=== PATIENT | female | born 1960 | race Caucasian/White ===

== ENCOUNTER 2016-10-26 14:28 | Emergency (ER) | payer OTHER ==
[2016-10-26 15:18] VITALS: BP 127/75
--- NOTE | 2016-10-26 17:48 | UC ---
Soham Marie Erika, scribed for Marcella Pa DO on 10/26/16 at 1511 . Cardiac HPI - HPI Summary HPI Summary: Patient is a 56-year-old female presenting to [facility] with a CC of sudden-onset chest pain starting at 12:00 today, and resolving around 13:45 today. Pain was located upper sternal, and pt describes it as similar to GERD she had during . Pain radiates between the shoulder blades midline, as well as up the posterior neck midline. Associated symptoms included lightheadedness and feeling weak in the bilateral arms. Patient also reports she became slightly SOB after walking up the stairs. Pt reports that after onset of symptoms, she became anxious, and she took 648 mg ASA. She also took her BP which was first 159/90s, which is high for her. Symptoms were not alleviated by slow deep breathing. Pain did subside around 13:45, but she has still noted some intermittent waves of lightheadedness, mild chest pain, and bilateral arm weakness l>r. She denies jaw pain, sore throat, ear ache, nausea, abdominal pain , urinary symptoms, and rashes. She does report that she had similar symptoms three days ago which only lasted ~10min. She notes she has been constipated recently. Patient denies Hx panic attacks. Patient does not take any medication. FHx HTN, CAD, hyperlipidemia. Patient lives with her , is a former smoker, and does not use illicit drugs. - History of Current Complaint Stated Complaint: CHEST PAIN Time Seen by Provider: 10/26/16 14:48 Hx Obtained From: Patient, Family/E[employer] - Onset/Duration: Sudden Onset, Lasting Hours, Resolved Timing: Constant Initial Severity: Moderate Current Severity: Mild Chest Pain Location: Mid Sternal, Upper Sternal Character: Dull/Aching, Burning, Heaviness, Pressure/Squeezing Aggravating: Exertion Alleviating: Rest, OTC Meds - ASA, Spontaneous Resolution Associated Signs & Symptoms: Positive: Chest Pain, Weakness - arms bilateral, Dizziness - lightheadedness, SOB, Back Pain. Negative: Headaches, Diaphoresis, Nausea/Vomiting, Abdominal Pain - Risk Factors Cardiac Risk Factors: Family History - Allergy/Home Medications Allergies/Adverse Reactions: Allergies Allergy/AdvReac Type Severity Reaction Status Date / Time eggplant Allergy Swelling Uncoded 10/26/16 15:06 Of Face,Lips,& Throat Home Medications: Home Medications Aspirin [Lola Aspirin 325 MG] 325 mg PO ONCE 10/26/16 [History Confirmed ] PMH/Surg Hx/FS Hx/Imm Hx Previously Healthy: Yes Endocrine History Of: Denies: Diabetes - Family History Known Family History: Positive: Cardiac Disease, Hypertension - Social History Lives: With Family Substance Use Type: None Smoking Status (MU): Former Smoker Review of Systems Constitutional: Negative Skin: Negative Eyes: Negative ENT: Negative Respiratory: Shortness Of Breath Cardiovascular: Chest Pain Gastrointestinal: Negative Genitourinary: Negative Motor: Negative Neurovascular: Negative Musculoskeletal: Other: - pain between shoulder blades, up posterior neck Neurological: Weakness - bilateral arms, Other - lightheadedness Psychological: Negative All Other Systems Reviewed And Are Negative: Yes Physical Exam Triage Information Reviewed: Yes Appearance: Well-Appearing, No Pain Distress, Obese Vital Signs: Initial Vital Signs Temp 98.3 F 10/26/16 15:09 Pulse 75 10/26/16 15:09 Resp 18 10/26/16 15:09 BP 127/75 10/26/16 15:09 Pulse Ox 97 10/26/16 15:09 Vital Signs Reviewed: Yes Eyes: Positive: Conjunctiva Clear. Negative: Discharge ENT: Positive: Hearing grossly normal. Negative: Muffled/hoarse voice Neck: Positive: Supple, Nontender Respiratory: Positive: Lungs clear, Normal breath sounds, No respiratory distress, No accessory muscle use Cardiovascular: Positive: RRR, No Murmur Abdomen Description: Positive: Nontender, Soft. Negative: Distended, Guarding Bowel Sounds: Positive: Present Musculoskeletal Exam: Normal Neurological: Positive: Alert, Muscle Tone Normal Psychological Exam: Normal Psychological: Positive: Age Appropriate Behavior Skin Exam: Other - Warm, dry, normal color Diagnostics - EKG Cardiac Rate: NL - at 67 bpm Cardiac Rhythm: Sinus: Normal - Differential Diagnoses - Chest Pain Differential Diagnosis/HQI/PQRI: ACS, Angina, Chest Wall, GI Disease - Clinical Impression Provider Diagnoses: 1. Chest pain r/o ACS - Physician Notifications Discussed Patient Care With: Rosaura JERONIMO ([facility] [place]) at 15:15 - accepts patient for transfer Discharge - Discharge Plan Condition: Stable Disposition: TRANS HIGHER L OF CARE FAC Referrals: [facility], [MD - TESTING] - The documentation as recorded by the otonielibSoham altamirano Erika accurately reflects the service I personally performed and the decisions made by me, Marcella Pa DO.
== END 2016-10-26 16:00 | disposition short-term general hospital (02) ==
LOC: UCEAST 14:28
DX: R07.9 Chest pain, unspecified (principal); Z79.82 Long term (current) use of aspirin; Z87.891 Personal history of nicotine dependence
CPT/HCPCS: 93005; 99213; G0463

== ENCOUNTER 2016-10-26 16:23 | Inpatient (IN) | payer OTHER ==
--- NOTE | 2016-10-26 17:26 | RAD ---
Indication: Atypical chest pain. Recurrent from 3 days ago. Comparison: None. Technique: Upright AP 1714 hours Report: Large body habitus limits image quality. No pulmonary infiltrate, focal pulmonary lesion, pleural effusion, pneumothorax. The heart, pulmonary vasculature, and mediastinal contours are unremarkable. IMPRESSION: No evidence for acute intrathoracic disease.
[2016-10-26 17:55] LABS: Hematocrit 42 % (35-47); Hemoglobin 13.9 g/dl (12.0-16.0); Mean Corpuscular HGB Conc 33 g/dl (31-36); Mean Corpuscular Hemoglobin 30 pg (27-31); Mean Corpuscular Volume 92 fL (80-97); Mean Platelet Volume 9 um3 (7.4-10.4); Red Blood Count 4.62 10^6/ul (4.0-5.4); Red Cell Distribution Width 13 % (10.5-15); White Blood Count 7.6 10^3/ul (3.5-10.8)
[2016-10-26 18:12] LABS: Albumin 4.2 g/dL (3.2-5.2); BUN/Creatinine Ratio 15.9 (8-20); Calcium 9.7 mg/dL (8.6-10.3); EGFR African American 126.2 (>60); EGFR Non-African American 98.1 (>60); Globulin 3.3 g/dL (2-4); Magnesium 2.1 mg/dL (1.9-2.7); Potassium 4.5 mmol/L (3.5-5.0); Total Bilirubin 0.3 mg/dL (0.2-1.0); Total Protein 7.5 g/dL (6.4-8.9)
[2016-10-26 18:17] LABS: Troponin I 0.19 ng/mL (<0.04)
[2016-10-26 18:21] LABS: T4 7.77 g/dL (6.09-12.23); TSH (Thyroid Stimulating Horm) 2.39 mcIU/mL (0.34-5.60)
[2016-10-26] MEDS ORDERED: Acetaminophen TAB* 325 MG PO PRN (18:22)
[2016-10-26] MEDS ORDERED: Morphine INJ* 2 MG/ML 1 ML SYRINGE IV PRN (18:22)
[2016-10-26] MEDS ORDERED: Ondansetron INJ* 2 MG/ML VIAL IV PRN (18:22)
[2016-10-26] MEDS ORDERED: Nitroglycerin TAB 0.4 MG* 0.4 MG TAB SL ONE (18:24)
[2016-10-26] MEDS ORDERED: NS 0.9% 1000 ML* 1,000 ML IV SCH (18:30)
--- NOTE | 2016-10-26 18:39 | ED ---
Hiral Marie Alok, scribed for Fareed Meza MD on 10/26/16 at 1709 . HPI Chest Pain - HPI Summary HPI Summary: 56 y/o female presents to the ED for upper CP radiating to the neck, SOB, lightheadedness and upper extremity weakness bilaterally while painting a few hours ago. Pt said the entire episode lasted approximately 1.5 hours after which symptoms have resolved. CP is described as a burning registering at a 6 out of 10 in severity for which she took one aspirin that largely improved her symptoms. Currently she feels no CP or SOB. Pt denies PMHx/PSHx. Pt denies drug use, EtOH occasionally, and is a former tobacco smoker. - History of Current Complaint Chief Complaint: EDChestPainROMI Time Seen by Provider: 10/26/16 16:52 Hx Obtained From: Patient Onset/Duration: Started Hours Ago, Atraumatic, Resolved Timing: Intermittent, Lasting Hours Initial Severity: Moderate Current Severity: None Pain Intensity: 0 Pain Scale Used: 0-10 Numeric Chest Pain Location: Discrete at:, Upper Sternal Chest Pain Radiates: Yes Chest Pain Radiates To:: Neck Character: Burning Alleviating Factor(s): OTC Meds - Aspirin Associated Signs and Symptoms: Positive: Chest Pain, Weakness, Shortness of Breath, Lightheadedness - Allergy/Home Medications Allergies/Adverse Reactions: Allergies Allergy/AdvReac Type Severity Reaction Status Date / Time eggplant Allergy Swelling Uncoded 10/26/16 15:06 Of Face,Lips,& Throat PMH/Surg Hx/FS Hx/Imm Hx Endocrine/Hematology History: Denies: Hx Diabetes - Surgical History Surgery Procedure, Year, and Place: D&C 2010 - fibroid removal in uterus Infectious Disease History: Denies: Traveled Outside the [place] in Last 30 Days - Family History Known Family History: Positive: Hypertension - Social History Lives: With Family - Alcohol Use: None Substance Use Type: Reports: None Smoking Status (MU): Former Smoker Review of Systems Negative: Fever Positive: Chest Pain Positive: Shortness Of Breath Neurological: Other - Lightheadedness Positive: Weakness All Other Systems Reviewed And Are Negative: Yes Physical Exam - Summary Physical Exam Summary: VITAL SIGNS: Reviewed. GENERAL: ~Patient is a well developed and nourished female who is lying comfortable in the stretcher. ~Patient is not in any acute respiratory distress. HEAD AND FACE: Normocephalic EYES: PERRLA, EOMI x 2. EARS: Hearing grossly intact. MOUTH: Oropharynx within normal limits. NECK: Supple, trachea is midline, no adenopathy, no JVD, no carotid bruit. CHEST: Symmetric, no tenderness at palpation LUNGS: Clear to auscultation bilaterally. No wheezing or crackles. CVS: Regular rate and rhythm, S1 and S2 present, no murmurs or gallops appreciated. ABDOMEN: Soft, non-tender. Bowel sounds are normal. No abdominal abnormal pulsations. EXTREMITIES: Full ROM in all major joints, no edema, no cyanosis or clubbing. NEURO: Alert and oriented x 3. No acute neurological deficits. Speech is normal and follows commands. SKIN: Dry and warm Triage Information Reviewed: Yes Vital Signs On Initial Exam: Initial Vitals Pulse Resp Pulse Ox 68 18 97 10/26/16 16:48 10/26/16 16:48 10/26/16 16:48 Vital Signs Reviewed: Yes - [place] Coma Scale Coma Scale Total: 15 Diagnostics - Vital Signs Vital Signs Temp Pulse Resp BP Pulse Ox 10/26/16 16:55 99.1 F 72 20 121/76 97 10/26/16 16:48 68 18 97 - Laboratory Lab Results: Lab Results 10/26/16 10/26/16 10/26/16 Range/Units 15:35 15:35 15:35 WBC 7.6 (3.5-10.8) 10^3/ul RBC 4.62 (4.0-5.4) 10^6/ul Hgb 13.9 (12.0-16.0) g/dl Hct 42 (35-47) % MCV 92 (80-97) fL MCH 30 (27-31) pg MCHC 33 (31-36) g/dl RDW 13 (10.5-15) % Plt Count 311 (150-450) 10^3/ul MPV 9 (7.4-10.4) um3 Neut % (Auto) 64.8 (38-83) % Lymph % (Auto) 26.7 (25-47) % [place] % (Auto) 6.6 (1-9) % Eos % (Auto) 1.1 (0-6) % Baso % (Auto) 0.8 (0-2) % Absolute Neuts (auto) 5.0 (1.5-7.7) 10^3/ul Absolute Lymphs (auto) 2.0 (1.0-4.8) 10^3/ul Absolute Monos (auto) 0.5 (0-0.8) 10^3/ul Absolute Eos (auto) 0.1 (0-0.6) 10^3/ul Absolute Basos (auto) 0.1 (0-0.2) 10^3/ul Absolute Nucleated RBC 0 10^3/ul Nucleated RBC % 0.1 INR (Anticoag Therapy) 0.91 (0.89-1.11) APTT 34.0 (26.0-36.3) seconds Sodium 138 (133-145) mmol/L Potassium 4.5 (3.5-5.0) mmol/L Chloride 102 (101-111) mmol/L Carbon Dioxide 30 (22-32) mmol/L Anion Gap 6 (2-11) mmol/L BUN 10 (6-24) mg/dL Creatinine 0.63 (0.51-0.95) mg/dL Est GFR ( Amer) 126.2 (>60) Est GFR (Non-Af Amer) 98.1 (>60) BUN/Creatinine Ratio 15.9 (8-20) Glucose 98 (70-100) mg/dL Calcium 9.7 (8.6-10.3) mg/dL Magnesium 2.1 (1.9-2.7) mg/dL Total Bilirubin 0.30 (0.2-1.0) mg/dL AST 15 (13-39) U/L ALT 15 (7-52) U/L Alkaline Phosphatase 65 (34-104) U/L Total Creatine Kinase 62 (10-223) U/L CK-MB (CK-2) 9.3 H (0.6-6.3) ng/mL Myoglobin 33.8 (14.3-65.8) ng/mL Troponin I 0.19 H* (<0.04) ng/mL B-Natriuretic Peptide ( - 100) pg/mL Total Protein 7.5 (6.4-8.9) g/dL Albumin 4.2 (3.2-5.2) g/dL Globulin 3.3 (2-4) g/dL Albumin/Globulin Ratio 1.3 (1-3) TSH 2.39 (0.34-5.60) mcIU/mL Thyroxine (T4) 7.77 (6.09-12.23) g/dL 10/26/16 Range/Units 15:35 WBC (3.5-10.8) 10^3/ul RBC (4.0-5.4) 10^6/ul Hgb (12.0-16.0) g/dl Hct (35-47) % MCV (80-97) fL MCH (27-31) pg MCHC (31-36) g/dl RDW (10.5-15) % Plt Count (150-450) 10^3/ul MPV (7.4-10.4) um3 Neut % (Auto) (38-83) % Lymph % (Auto) (25-47) % [place] % (Auto) (1-9) % Eos % (Auto) (0-6) % Baso % (Auto) (0-2) % Absolute Neuts (auto) (1.5-7.7) 10^3/ul Absolute Lymphs (auto) (1.0-4.8) 10^3/ul Absolute Monos (auto) (0-0.8) 10^3/ul Absolute Eos (auto) (0-0.6) 10^3/ul Absolute Basos (auto) (0-0.2) 10^3/ul Absolute Nucleated RBC 10^3/ul Nucleated RBC % INR (Anticoag Therapy) (0.89-1.11) APTT (26.0-36.3) seconds Sodium (133-145) mmol/L Potassium (3.5-5.0) mmol/L Chloride (101-111) mmol/L Carbon Dioxide (22-32) mmol/L Anion Gap (2-11) mmol/L BUN (6-24) mg/dL Creatinine (0.51-0.95) mg/dL Est GFR ( Amer) (>60) Est GFR (Non-Af Amer) (>60) BUN/Creatinine Ratio (8-20) Glucose (70-100) mg/dL Calcium (8.6-10.3) mg/dL Magnesium (1.9-2.7) mg/dL Total Bilirubin (0.2-1.0) mg/dL AST (13-39) U/L ALT (7-52) U/L Alkaline Phosphatase (34-104) U/L Total Creatine Kinase (10-223) U/L CK-MB (CK-2) (0.6-6.3) ng/mL Myoglobin (14.3-65.8) ng/mL Troponin I (<0.04) ng/mL B-Natriuretic Peptide 44 ( - 100) pg/mL Total Protein (6.4-8.9) g/dL Albumin (3.2-5.2) g/dL Globulin (2-4) g/dL Albumin/Globulin Ratio (1-3) TSH (0.34-5.60) mcIU/mL Thyroxine (T4) (6.09-12.23) g/dL Result Diagrams: 10/26/16 15:35 10/26/16 15:35 Lab Statement: Any lab studies that have been ordered have been reviewed, and results considered in the medical decision making process. - Radiology CXR Xray Interpretation: Positive (See Comments) - IMPRESSION: No evidence for acute intrathoracic disease. Radiology Interpretation Completed By: Radiologist - EKG 1652 Cardiac Rate: NL EKG Rhythm: Sinus Rhythm - 63 bpm EKG Interpretation: No ST Elevation Chest Pain Course/Dx - Course Course Of Treatment: 56 y/o female presents to the ED for upper CP radiating to the neck, SOB, lightheadedness and upper extremity weakness bilaterally while painting a few hours ago. Pt said the entire episode lasted approximately 1.5 hours after which symptoms have resolved. CP is described as a burning registering at a 6 out of 10 in severity for which she took one aspirin that largely improved her symptoms. Currently she feels no CP or SOB. Pt denies PMHx/ PSHx. Pt denies drug use, EtOH occasionally, and is a former tobacco smoker. Assessment/Plan: Blood work is within nml limits except for CKMB 9.3 H and Trop 0.19 H. EKG shows NSR [address] elevations. CXR shows IMPRESSION: No evidence for acute intrathoracic disease. Pt took aspirin at home. Pt is no longer symptomatic with no CP so I held NTG. Because of increased trop, discussed case with Dr. Bryson (Hospitalist) who will admit pt. Pt is hemodynamically stable and alert and oriented x3. - Chest Pain Differential Diagnosis/HQI/PQRI: Acute NE, ACS, Angina, CHF, Chest Wall, GI Disease, Lower Respiratory Infection - Diagnoses Provider Diagnoses: Chest pain, increased troponin r/o ACS - Provider Notifications Discussed Care Of Patient With: Dr. Bryson (Hospitalist) @ 1822 - WIll admit pt Discharge - Discharge Plan Condition: Stable Disposition: ADMITTED TO [facility] Referrals: [facility] [place], [Primary Care Provider] - The documentation as recorded by the Hiral turpin Alok accurately reflects the service I personally performed and the decisions made by Derrick john Walter, MD.
[2016-10-26] MEDS ORDERED: Heparin DRIP 25,000 UNITS(*) 25,000 UNITS/500 ML BAG IVPB SCH (19:30)
[2016-10-26] MEDS ORDERED: Heparin VIAL(*) 5000 UNITS/ML VIAL (FIVE THOUSAND) IV SCH (20:00)
[2016-10-26] MEDS: Metoprolol Tartrate TAB* 25 MG PO SCH (20:45)
[2016-10-26] MEDS ORDERED: Atorvastatin* 40 MG TAB PO SCH (21:00)
[2016-10-26] MEDS ORDERED: Heparin VIAL(*) 5000 UNITS/ML VIAL (FIVE THOUSAND) SUBCUT SCH (22:00)
[2016-10-26 22:43] LABS: Troponin I 0.61 ng/mL (<0.04)
--- NOTE | 2016-10-27 00:26 | HP ---
HISTORY AND PHYSICAL: DATE OF ADMISSION: 10/26/16 PRIMARY CARE PROVIDER: ATTENDING PHYSICIAN WHILE IN THE HOSPITAL: Magda Mcgowan MD *(report dictated by Titi Arreola NP) CONSULTING TRACK EQUIPMENT OPERATOR: Dr. Munroe. CHIEF COMPLAINT: Chest pain. HISTORY OF PRESENT ILLNESS: Mrs. Mendoza is a 56-year-old female patient who was at home today painting. 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 She noticed that she started feeling burning, tightness discomfort in the chest going up into the jaw and then down both arms. She said it did go into the back. It lasted about an hour. She had no associated symptoms such as nausea. She did state that when she tried to go up her stairs though she felt that she was having trouble with breathing. She did state that it did not make any effect on the pain, however. She denied having any recent chest pain with exertion, but she did state that 2 days ago, she had an episode while driving in the car similar, but not as intense chest discomfort that went away on its own. She states that she has not had any recent cough or fever. No recent trips or travel or any surgeries and says that she has not had any leg pain or swelling. She says that she took an aspirin today. She actually got on [employer] and looked up at the symptoms and became concerned, called her and they actually went to Urgent Care. She denies any recent URI symptoms and no recent fevers. She was at Urgent Care. They evaluated her and sent her to the emergency department. By the time she got to Urgent Care, the pain was gone and she is chest pain free now. She denies any recent changes in her medications, but she was concerned nonetheless. She came in, evaluated. Troponin was noted to be 0.19. Because of this, we were asked to evaluate for admission. PAST MEDICAL HISTORY: Significant for gestational diabetes. PAST SURGICAL HISTORY: She has had D and C. HOME MEDICATIONS: Denied. ALLERGIES TO MEDICATIONS: Include no known drug allergies. FAMILY HISTORY: Her mother has a history of coronary artery disease. Father's history was noncontributory. SOCIAL HISTORY: She was a [id number] for about a pack a day. She quit about 8 years ago. Occasionally drinks alcohol. Surrogate decision maker is her . REVIEW OF SYSTEMS: There is no documented fever. She denied having any significant weight change. There was no double vision. There is no ear discharge. She denies having any rhinorrhea. There was no sore throat. No thyroid enlargement. She does admit to chest pain from my HPI. She denies having any chest pain on exertion. No shortness of breath. There was dyspnea on exertion. No orthopnea. No nocturnal dyspnea. Review of 14 systems completed, all others negative. PHYSICAL EXAMINATION GENERAL: At this time, Mrs. Mendoza is a 56-year-old female patient. She is sitting in the ER stretcher. She does not appear to be in any acute distress. VITAL SIGNS: Blood pressure 141/85, pulse 73, respirations 18, O2 sat 99%, temperature 99.1. HEENT: Head is atraumatic and normocephalic. Eyes: EOMs are intact. Sclerae are anicteric and not pale. Throat: Oral mucosa appears to be moist. No oropharyngeal erythema. NECK: Supple. LUNGS: Clear to auscultation bilaterally. No wheezes, rales, or rhonchi. HEART: Sounds S1, S2. Regular rate and rhythm. No murmurs, rubs, or gallops. ABDOMEN: Soft, flat, nontender. Bowel sounds present. EXTREMITIES: Pulses 2+ throughout. She had no peripheral edema. Able to move all 4 extremities with 5/5 strength. NEUROLOGIC: The patient is awake, alert, oriented x3. Speech clear. Tongue midline. No gross focal deficits. SKIN: Intact. LABORATORY DATA/DIAGNOSTIC STUDIES: Labs today revealed WBC 7.6, RBC of 4.62, hemoglobin 13.9, hematocrit 32, and platelet count of . INR 0.99, PTT 34. Sodium 138, potassium 4.5, chloride of 102, bicarb 30, BUN 10, creatinine of 0.63, glucose 98. Calcium 9.7, mag 2.1, total bili 0.3, AST 15, ALT 15, alk phos 65, CK 62, CK-MB 9.3. Troponin 0.19. Albumin of 4.2. TSH of 2.39. D- dimer was less than 200. She did have a chest x-ray obtained today, which revealed no evidence of acute intrathoracic disease. There was an EKG obtained initially at 1439, which showed a normal sinus rhythm with a rate of 67. No ST elevations or T-wave inversions. Repeat EKG appeared to be unchanged and that she had a third EKG which no ST elevations or T wave inversions were noted, but lead 1, QRS appeared to be different along with the QRS in lead 2, but no other significant changes in the EKG were noted. No ST elevations or T-wave inversions were noted. Old medical records were reviewed. ASSESSMENT AND PLAN: Ms. Mendoza is a 56-year-old female patient coming into the ER today with complaints of chest discomfort. Hospitalist service was asked to evaluate for admission. She will be admitted under observation status for: 1. Chest pain. I am concerned that this pain probably represents unstable angina. She did have pain 2 days ago and now pain again and now her troponins are elevated. I did touch base with Dr. Munroe. The plan at this point is to go ahead and place her on a heparin drip, beta-estephanie, aspirin, statin therapy, which I have started. We will get a stress test if her troponins trend down or stay stable per the recommendations of Cardiology and we will also if the troponins tend to go up, we will keep her n.p.o. for possible cardiac catheterization in the morning. She does have risk factors for acute coronary syndrome. She has a family history. In addition to this, she is a former smoker. So, we will continue with maximum medical therapy. She is chest pain- free, so I do not think nitrates are needed at this point. Should she start having any chest pain or any significant EKG changes concerning for ischemia, we will reconsult Cardiology throughout the night. We will check a lipid panel. 2. History of gestational diabetes, not an active issue. I will check the A1c in the morning. 3. DVT prophylaxis. She will be placed on a heparin drip. 4. Fluids, electrolytes, and nutrition. We will go ahead and put her on a vegetarian diet as that is her request. 5. Code status. Full code. TIME SPENT: Time spent on the admission 60 minutes, greater than half of the time spent [id number] with the patient obtaining my history and physical, the other half time was spent going over the plan of care with the patient and implementing plan of care. I did discuss the plan of care with my attending, Dr. Mcgowan. She is in agreement. TITI ARREOLA NP CC: Dr. Munroe* [id number]/[facility] #: [id number] MIREYA
[2016-10-27 06:37] LABS: Hematocrit 40 % (35-47); Hemoglobin 13.1 g/dl (12.0-16.0); Mean Corpuscular HGB Conc 33 g/dl (31-36); Mean Corpuscular Hemoglobin 30 pg (27-31); Mean Corpuscular Volume 91 fL (80-97); Mean Platelet Volume 8 um3 (7.4-10.4); Red Blood Count 4.33 10^6/ul (4.0-5.4); Red Cell Distribution Width 13 % (10.5-15)
[2016-10-27 06:48] LABS: BUN/Creatinine Ratio 19.3 (8-20); Calcium 8.9 mg/dL (8.6-10.3); EGFR African American 141.6 (>60); EGFR Non-African American 110.1 (>60); HDL Cholesterol 46.5 mg/dL; Potassium 3.9 mmol/L (3.5-5.0)
[2016-10-27 07:49] LABS: Troponin I 0.34 ng/mL (<0.04)
[2016-10-27] MEDS ORDERED: Atorvastatin* 80 MG TAB PO SCH (10:57)
[2016-10-27] MEDS ORDERED: Heparin 2 UNITS/ML IVPREMIX* 2,000 ML IV ONE (11:35)
[2016-10-27] MEDS ORDERED: Midazolam* 1 MG/ML 5 ML VIAL (5 MG) ONE (11:35)
[2016-10-27] MEDS ORDERED: fentaNYL* 50 MCG/ML 2 ML VIAL (100 MCG VIAL) ONE ×2 (11:35→12:51)
[2016-10-27] MEDS ORDERED: VERAPAMIL 2.5 MG/ML 4 ML VIAL ONE (11:35)
[2016-10-27] MEDS ORDERED: Heparin(*) 1000 UNIT/ML 10 ML VIAL CATH LAB IV ONE (11:35)
[2016-10-27] MEDS ORDERED: Iohexol 350 (CONTRAST) 200 ML MDV IV ONE (11:36)
[2016-10-27] MEDS ORDERED: nitroGLYCERIN DRIP* 250 ML ONE (11:36)
[2016-10-27] MEDS ORDERED: Lidocaine 1% INJ* 10 MG/ML 30 ML SDV ONE (11:36)
[2016-10-27] MEDS ORDERED: NS 0.9% 1000 ML* 1,000 ML IV SCH (13:15)
[2016-10-27] MEDS ORDERED: Clopidogrel TAB* 300 MG PO ONE (13:15)
--- NOTE | 2016-10-27 14:38 | CONS ---
CC: Dr. Hutson; Dr. Montes INTERVENTIONAL CARDIOLOGY CONSULT NOTE: DATE OF CONSULT: 10/27/16 PRIMARY CARE PHYSICIAN: Dr. Hutson. HISTORY OF PRESENT ILLNESS: A 56-year-old woman admitted with non-ST elevation infarct. Four days ago, she had about a 10-minute episode of precordial chest discomfort at rest, radiating t o the base of her neck as well as her arms, it lasted about 10 minutes and resolved. Yesterday, she had about an hour of the same kind of sensation occurring at rest, it was more severe. She present ed to the ER, where EKG was normal, her troponin was slightly elevated, and she was admitted. Subseq uently, troponin has increased to 0.61 and decreased. She has remained pain free since admission. She has not had any change in exercise tolerance, has no history of palpitations, syncope, or heart failure symptoms. She is active. Risk factor is coronary disease. She is an ex-smoker. Family history is positive for coronary disease in her mother in the 60s. She had gestational diabe hong. PAST MEDICAL HISTORY: Gestational diabetes and obesity. PREHOSPITAL MEDICATIONS: None including aspirin. ALLERGIES: None to medications. FAMILY HISTORY: As above. SOCIAL HISTORY: Ex-smoker. REVIEW OF SYSTEMS: General: No weight loss. No fever. 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 GI: No p eptic ulcer disease or bleeding. Circulatory: No claudication. Heme: No history of malignancy or anemia. Remainder of 14-point review all negative. PHYSICAL EXAM: She is pain free, moderately overweight. BP 118/86, heart rate is 65, sinus rhythm. She is afebrile. Her lungs are clear to percussion and auscultation. JVP and carotids are normal . No bruits. HEENT is normal without xanthelasma, scleral injection, or jaundice. EOMs are normal . Cranial nerves grossly intact. Cardiac Exam: Chest wall nontender, apex and RV not palpable, sh e may have a soft S4 gallop, no S3, no murmur. Abdomen: Soft, nontender. Normal bowel sounds, aor ta and liver not palpable. She has no bruit. Femoral pulses are 2+. No bruits. Extremities: Rad ial pulses 2+, pedal pulses 2+ as are femorals. She has no cyanosis, clubbing, or edema. Skin is wa rm and perfused. DIAGNOSTIC STUDIES/LAB DATA: Her CBC is normal as is BMP. Troponin on admission 0.19, then 0.55, 0 .61, 0.34. Cholesterol high at 231, triglycerides 142, LDL 145, HDL 58.1. Chest x-ray was read as normal. EKG is normal. IMPRESSION: Non-ST elevation infarct. She presented with a non-ST elevation infarct, is pain free on medical therapy. We discussed the diagnosis, therapeutic options, we discussed catheterization, possible need for percutaneous revascularization with stenting. We discussed the procedure risks of stenting including need for bypass grafting with transfer, ND, etc. We also discussed the need for dual-antiplatelet therapy post stent placement if that is required. All questions were answered. She wants to proceed. Her MOLINA score is 1 to 2, revascularization is uncertain based on AUC criteri a; however, catheterization is appropriate. Decision will be made based on her anatomy. [id number]/[facility] #: [id number]
[2016-10-27] MEDS: Metoprolol Tartrate TAB* 25 MG PO SCH ×2 (16:32→20:34)
[2016-10-27] MEDS: Aspirin EC Low Dose* 81 MG TAB.EC PO SCH (16:32)
--- NOTE | 2016-10-27 19:42 | PN ---
Subjective Date of Service: 10/27/16 Interval History: . no pain reminds me she never had pain. arm a bit sore at cath site, but looks ok. patient in good spirits we reviewed her medication regimen. denies other symptoms. . Family History: Unchanged from Admission Social History: Unchanged from Admission Past Medical History: Unchanged from Admission Objective Active Medications: . Acetaminophen (Tylenol Tab*) 650 mg PO Q4H PRN PRN Reason: FEVER/PAIN Aspirin (Aspirin Ec Low Dose*) 81 mg PO DAILY [facility] Last Admin: 10/27/16 16:32 Dose: 81 mg Atorvastatin Calcium (Lipitor*) 80 mg PO 2099 [facility] Clopidogrel Bisulfate (Plavix Tab*) 75 mg PO DAILY [facility] Metoprolol Tartrate (Lopressor Tab*) 25 mg PO 0900,2099 [facility] Last Admin: 10/27/16 16:32 Dose: 25 mg Morphine Sulfate (Morphine Inj (Syringe)*) 2 mg IV Q4H PRN PRN Reason: PAIN Ondansetron HCl (Zofran Inj*) 4 mg IV Q4H PRN PRN Reason: NAUSEA/VOMITING . Vital Signs 10/27/16 10/27/16 10/27/16 11:09 13:15 13:30 Temperature 98.3 F Pulse Rate 69 65 65 Respiratory 16 12 12 Rate Blood Pressure 131/89 110/69 110/69 (mmHg) O2 Sat by Pulse 98 97 97 Oximetry 10/27/16 10/27/16 10/27/16 13:45 16:25 16:27 Temperature 97.7 F 97.7 F Pulse Rate 68 78 78 Respiratory 16 20 20 Rate Blood Pressure 93/70 131/61 131/61 (mmHg) O2 Sat by Pulse 100 98 98 Oximetry Oxygen Devices in Use Now: None Appearance: NAD Ears/Nose/Mouth/Throat: NL Teeth, Lips, Gums Neck: NL Appearance and Movements; NL JVP Respiratory: Symmetrical Chest Expansion and Respiratory Effort Cardiovascular: NL Sounds; No Murmurs; No JVD Abdominal: NL Sounds; No Tenderness; No Distention Extremities: No Edema Skin: No Rash or Ulcers Neurological: Alert and Oriented x 3 Lines/Tubes/Other Access: Clean, Dry and Intact Peripheral IV Nutrition: Taking PO's Result Diagrams: 10/27/16 05:59 10/28/16 04:47 Additional Lab and Data: . Assess/Plan/Problems-Billing . Assessment: 56 yo female with acute NSTEMI - no macrovascular occlusions on cath. medical management medications reviewed. - Patient Problems (1) NSTEMI (non-ST elevated myocardial infarction) Status: Acute Priority: High Code(s): I21.4 - NON-ST ELEVATION (NSTEMI) MYOCARDIAL INFARCTION Comment: - BB - Statin - prn nitroglycerin - telemetry ongoing, by protocol - cardiology involved - ASA/Plavix.
--- NOTE | 2016-10-28 02:03 | CATH ---
CC: Dr. Hutson; Dr. Montes CATH REPORT: DATE OF CATH: 10/27/16 PRIMARY CARE PHYSICIAN: Dr. Hutson. PROCEDURES: Right radial artery access with ultrasound guidance, bilateral selective coronary cinea ngiography, left heart catheterization, left ventriculography. HISTORY: A 56-year-old woman with troponin positive ACS, typical ischemic symptoms 4 days prior to admission, and day prior to admission when she had 1 hour of precordial chest discomfort radiating t o the base of her neck and into both arms, and her back. EKG is unchanged. Troponin peaked at 0.61 . She has a high LDL of 145. PROCEDURE ACCESS: Right radial artery sheath 6-F Slender. MEDICATIONS: 1. Subcu lidocaine. 2. IV Versed. 3. IV fentanyl. 4. Heparin 3000 units. 5. Verapamil 3 mg. 6. Nitroglycerin 300 mg IA. DIAGNOSTIC CATHETERS: 5FL, 4-5FL 3.5, 5F pigtail. HEMODYNAMICS: Initial BP 165/82, LV 121/10-17, no aortic valve gradient on pullback. ANGIOGRAPHY: Left main: The left main is normal in size and length, has no stenosis. LAD: The LAD is large, extends past the apex, and supplies the inferoapical segment. The LV suppli es a large mid diagonal. It has no stenosis. Circumflex: The circumflex is large, with a large ramus branch, moderate to marginal and moderate p osterolateral. Mid circumflex has minimal luminal irregularity consistent with nonobstructive plaqu ing. RCA: The RCA is dominant, with a small caliber PDA and large posterolateral. It has no stenosis. LV gram: There is ectopy with the ventriculogram with catheter-induced and ectopy- induced MR. Est imated LVEF is 60%, wall motion is normal. CONCLUSION: 1. No obstructive coronary artery disease, mild plaquing, distal circumflex. 2. Troponin positive acute coronary syndrome likely due to nonobstructive coronary artery disease w ith distal embolization and/or recanalization. 3. Normal LV systolic function. 4. Elevated LVDP, otherwise normal left-sided hemodynamics. 5. Successful right radial artery access. 6. Medical therapy, dual antiplatelet therapy for 6 months, long-term high dose potent statin thera py, aspirin for life. [id number]/[facility] #: [id number]
[2016-10-28 06:03] LABS: Albumin 3.6 g/dL (3.2-5.2); Calcium 8.9 mg/dL (8.6-10.3); EGFR African American 133.5 (>60); EGFR Non-African American 103.8 (>60); Globulin 2.9 g/dL (2-4); Potassium 3.9 mmol/L (3.5-5.0); Total Bilirubin 0.4 mg/dL (0.2-1.0); Total Protein 6.5 g/dL (6.4-8.9)
[2016-10-28] MEDS: Aspirin EC Low Dose* 81 MG TAB.EC PO SCH (08:50)
[2016-10-28] MEDS: Metoprolol Tartrate TAB* 25 MG PO SCH (08:51)
[2016-10-28 08:55] VITALS: BP 124/84
[2016-10-28] MEDS ORDERED: Clopidogrel TAB* 75 MG PO SCH (09:00)
[2016-10-28] MEDS ORDERED: Nitroglycerin TAB 0.4 MG* 0.4 MG TAB SL PRN (11:20)
--- NOTE | 2016-10-28 16:47 | PN ---
Hospitalist Progress Note . HOSPITALIST DISCHARGE NOTE: See dc instructions and summary by me. Patient stable for dc dc instructions reviewed with the patient at the bedside. DC patient home today.
--- NOTE | 2016-10-29 12:12 | DS ---
DISCHARGE SUMMARY: DATE OF ADMISSION: 10/26/16 DATE OF DISCHARGE: 10/28/16 STATUS DURING HOSPITALIZATION: Inpatient/admitted. PRIMARY CARE PROVIDER: Dr. Hutson. CONSULTING SURGERY NURSE: Dr. Junior Montes, roving marker. PRINCIPAL DISCHARGE DIAGNOSIS: Acute non-ST elevation myocardial infarction with elevated troponin and nonocclusive coronary disease noted by catheterization. SECONDARY DIAGNOSIS: History of gestational diabetes, but hemoglobin A1c indicating no active diabetes. DISCHARGE MEDICATION REGIMEN: (All new): 1. Plavix 75 mg by mouth daily. 2. Aspirin 81 mg by mouth daily. 3. Metoprolol 25 mg by mouth twice daily. 4. Atorvastatin/Lipitor 80 mg by mouth q.h.s. 5. Sublingual nitroglycerin 0.4 mg q.5 minutes sublingually p.r.n. chest pain up to 3 times, then call 911. PROCEDURES DURING HOSPITALIZATION: Cardiac catheterization by Dr. Junior Montes on 10/27/16. Please see his report, but in brief, there was no macrovascular obstructive coronary disease, but there was mild plaquing in the distal circumflexes suggesting distal embolization or recannulation as mechanism of non-ST elevation [place]. He also noted a troponin positive for acute coronary syndrome likely due to nonobstructive coronary arterial disease with distal embolization/recannulization. There was normal LV systolic function noted. Elevated LVEDP. Otherwise, normal left-sided hemodynamics and a successful right radial artery access with the conclusion being dual- antiplatelet therapy for 6 months with long-term high-dose potent statin therapy and aspirin for life. HISTORY OF PRESENT ILLNESS AND HOSPITAL COURSE: Please see the H and P by Titi Arreola NP, under the supervision of Dr. Magda Mcgowan. In brief, Ms. Mendoza is a 56-year-old woman, who was painting at her home, when she noticed tightness and discomfort in her chest going up into her jaw and down both arms and without radiation into the back. It lasted about 1 hour with no associated symptoms. She tried to go upstairs and felt that she was having trouble with breathing during this time. The patient denied having recent similar symptoms or chest pain with exertion, but did report that 2 days prior, she had an episode while she was driving that was similar, but not as intense. It was an accelerating symptomatology in other words. The patient looked up these symptoms on [employer] and found that they might represent ACS and she reported to the hospital. Her initial troponin was noted to be indeterminate at 0.19, but certainly not normal. A repeat troponin was greater than 0.5 indicating she qualifies as a non-ST elevation [place] based on typical troponin thresholds. The patient was kept on telemetry monitoring though she did not have pain in the hospital. She was closely followed with repeat EKGs, which showed no T-wave or ST-segment changes suggestive of an ST-elevation KY. The patient's troponins were downward trending by day 2 and she proceeded with cardiac catheterization. The results were discussed above. She is being discharged with aggressive medical management. She is to follow up with Dr. Hutson in the next week and Dr. Montes as he directed in his discharge instructions. Ms. Mendoza will come back to the hospital if she has any concerning symptoms including but not limited to chest pain, shortness of breath, lightheadedness, or any other worrisome symptoms and she said she will comply with that instruction. TIME SPENT: Total time taken to discharge Ms. Mendoza was 45 minutes, greater than half that time was spent doing medical teaching [id number] with the patient and her family (son and ) and answering their questions to their satisfaction. CC: Dr. Hutson; Dr. Junior Montes * [id number]/[facility] #: [id number] [facility]
== END 2016-10-28 11:53 | disposition home or self-care (01) | DRG 282 ==
LOC: ED 16:23 → MEDTELE 18:22 → OBSVTOIN 10-27 09:30
PROVIDERS: ADMIT Internal Medicine; ATTEND Internal Medicine
PROC: 4A023N7 Measurement of Cardiac Sampling and Pressure, Left Heart, Percutaneous Approach (ICD-10-PCS; 2016-10-27)
PROC: B2151ZZ Fluoroscopy of Left Heart using Low Osmolar Contrast (ICD-10-PCS; 2016-10-27)
PROC: B2111ZZ Fluoroscopy of Multiple Coronary Arteries using Low Osmolar Contrast (ICD-10-PCS; principal; 2016-10-27 11:00)
DX: I21.4 Non-ST elevation (NSTEMI) myocardial infarction (principal); E66.9 Obesity, unspecified; I25.10 Atherosclerotic heart disease of native coronary artery without angina pectoris; Z87.891 Personal history of nicotine dependence; Z91.018 Allergy to other foods; Z82.49 Family history of ischemic heart disease and other diseases of the circulatory system; Z68.34 Body mass index [BMI] 34.0-34.9, adult; Z79.82 Long term (current) use of aspirin; Z79.02 Long term (current) use of antithrombotics/antiplatelets
CPT/HCPCS: 36415; 71010; 80048; 80053; 80061; 82550; 82553; 83036; 83735; 83874; 83880; 84436; 84443; 84484; 85025; 85379; 85610; 85730; 93005; 93458; 99285; A9270-GY; G0378; J1644; J2001; J2250; J3010

== ENCOUNTER 2016-10-29 11:29 | Observation (INO) | payer OTHER ==
[2016-10-29] MEDS ORDERED: Aspirin Low Dose CHEW TAB* 81 MG PO ONE (11:45)
[2016-10-29 12:05] LABS: Hematocrit 41 % (35-47); Hemoglobin 13.4 g/dl (12.0-16.0); Mean Corpuscular HGB Conc 33 g/dl (31-36); Mean Corpuscular Hemoglobin 30 pg (27-31); Mean Corpuscular Volume 90 fL (80-97); Mean Platelet Volume 8 um3 (7.4-10.4); Red Blood Count 4.48 10^6/ul (4.0-5.4); Red Cell Distribution Width 13 % (10.5-15); White Blood Count 7.8 10^3/ul (3.5-10.8)
[2016-10-29 12:21] LABS: Albumin 3.8 g/dL (3.2-5.2); BUN/Creatinine Ratio 17.2 (8-20); Calcium 9.2 mg/dL (8.6-10.3); EGFR African American 123.9 (>60); EGFR Non-African American 96.3 (>60); Globulin 3.2 g/dL (2-4); Magnesium 1.9 mg/dL (1.9-2.7); Potassium 3.9 mmol/L (3.5-5.0); Total Bilirubin 0.4 mg/dL (0.2-1.0)
[2016-10-29 12:30] LABS: Troponin I 0.05 ng/mL (<0.04)
--- NOTE | 2016-10-29 12:39 | RAD ---
INDICATION: Chest pain COMPARISON: October 26, 2016 TECHNIQUE: An AP portable view obtained at 1230 hours is submitted. FINDINGS: Bones/Soft Tissues: There are no acute bony findings. Cardiomediastinal: The cardiomediastinal silhouette is normal. Lungs: There are no infiltrates. Pleura: There are no pleural effusions. Other: None IMPRESSION: NEGATIVE EXAMINATION.
[2016-10-29 12:51] LABS: T4 8.33 g/dL (6.09-12.23)
[2016-10-29 12:52] LABS: TSH (Thyroid Stimulating Horm) 2.13 mcIU/mL (0.34-5.60)
--- NOTE | 2016-10-29 13:33 | ED ---
I, Oh,Gurpreet, scribed for Fareed Meza MD on 10/29/16 at 1200 . HPI Chest Pain - HPI Summary HPI Summary: This 56 y/o female presents to ED via ambulance for acute on recurrent 6/10 chest pressure radiating to jaw and BUE this morning. Pt was sitting in a chair and talking to her brother at the time of onset. 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 Pt reports mild nausea in ambulance and feeling clammy. She was last seen in [facility] for similar chest pain 2 days ago. Pt was admitted and had cardiac cath done, which was benign. - History of Current Complaint Time Seen by Provider: 10/29/16 11:49 Hx Obtained From: Patient Onset/Duration: Started Hours Ago Timing: Constant Pain Intensity: 6 Pain Scale Used: 0-10 Numeric Chest Pain Location: Diffuse Chest Pain Radiates: Yes Chest Pain Radiates To:: Arm, Jaw Character: Pressure/Squeezing Aggravating Factor(s): Nothing Alleviating Factor(s): Nothing Associated Signs and Symptoms: Positive: Chest Pain, Diaphoresis - "feeling clammy", Nausea - Additional Pertinent History Primary Care Physician: [facility] [place] - Allergy/Home Medications Allergies/Adverse Reactions: Allergies Allergy/AdvReac Type Severity Reaction Status Date / Time No Known Drug Allergy Allergy See Comment Verified 10/29/16 12:35 eggplant Allergy Swelling Uncoded 10/26/16 15:06 Of Face,Lips,& Throat PMH/Surg Hx/FS Hx/Imm Hx Endocrine/Hematology History: Denies: Hx Diabetes Sensory History: Reports: Hx Contacts or Glasses Denies: Hx Hearing Aid Opthamlomology History: Reports: Hx Contacts or Glasses - Surgical History Surgery Procedure, Year, and Place: D&C 2010 - fibroid removal in uterus Infectious Disease History: Denies: Traveled Outside the [place] in Last 30 Days - Family History Known Family History: Positive: Cardiac Disease, Hypertension - Social History Alcohol Use: None Hx Substance Use: No Substance Use Type: Reports: None Hx Tobacco Use: Yes Smoking Status (MU): Former Smoker Have You Smoked in the Last Year: No Review of Systems Positive: Skin Diaphoresis - "feeling clammy". Negative: Fever Positive: Chest Pain Positive: Nausea All Other Systems Reviewed And Are Negative: Yes Physical Exam - Summary Physical Exam Summary: VITAL SIGNS: Reviewed. GENERAL: Patient is a well developed and nourished female who is lying comfortable in the stretcher. Patient is not in any acute respiratory distress. HEAD AND FACE: No signs of trauma. No ecchymosis, hematomas or skull depressions. No sinus tenderness. EYES: PERRLA, EOMI x 2, No injected conjunctiva, no nystagmus. EARS: Hearing grossly intact. Ear canals and tympanic membranes are within normal limits. MOUTH: Oropharynx within normal limits. NECK: Supple, trachea is midline, no adenopathy, no JVD, no carotid bruit, no c- spine tenderness, neck with full ROM. CHEST: Symmetric, no tenderness at palpation LUNGS: Clear to auscultation bilaterally. No wheezing or crackles. CVS: Regular rate and rhythm, S1 and S2 present, no murmurs or gallops appreciated. ABDOMEN: Soft, non-tender. No signs of distention. No rebound no guarding, and no masses palpated. Bowel sounds are normal. EXTREMITIES: FROM in all major joints, no edema, no cyanosis or clubbing. NEURO: Alert and oriented x 3. No acute neurological deficits. Speech is normal and follows commands. SKIN: Dry and warm Triage Information Reviewed: Yes Vital Signs On Initial Exam: Initial Vitals Temp Pulse Resp BP Pulse Ox 98.7 F 66 16 105/85 96 10/29/16 11:55 10/29/16 11:55 10/29/16 11:55 10/29/16 11:55 10/29/16 11:55 Vital Signs Reviewed: Yes Diagnostics - Vital Signs Vital Signs Temp Pulse Resp BP Pulse Ox 10/29/16 11:55 98.7 F 66 16 105/85 96 - Laboratory Lab Results: Lab Results 10/29/16 10/29/16 10/29/16 Range/Units 11:41 11:41 11:41 WBC 7.8 (3.5-10.8) 10^3/ul RBC 4.48 (4.0-5.4) 10^6/ul Hgb 13.4 (12.0-16.0) g/dl Hct 41 (35-47) % MCV 90 (80-97) fL MCH 30 (27-31) pg MCHC 33 (31-36) g/dl RDW 13 (10.5-15) % Plt Count 319 (150-450) 10^3/ul MPV 8 (7.4-10.4) um3 Neut % (Auto) 66.3 (38-83) % Lymph % (Auto) 24.4 L (25-47) % [place] % (Auto) 6.3 (1-9) % Eos % (Auto) 2.0 (0-6) % Baso % (Auto) 1.0 (0-2) % Absolute Neuts (auto) 5.2 (1.5-7.7) 10^3/ul Absolute Lymphs (auto) 1.9 (1.0-4.8) 10^3/ul Absolute Monos (auto) 0.5 (0-0.8) 10^3/ul Absolute Eos (auto) 0.2 (0-0.6) 10^3/ul Absolute Basos (auto) 0.1 (0-0.2) 10^3/ul Absolute Nucleated RBC 0 10^3/ul Nucleated RBC % 0 APTT 32.0 (26.0-36.3) seconds Sodium 138 (133-145) mmol/L Potassium 3.9 (3.5-5.0) mmol/L Chloride 104 (101-111) mmol/L Carbon Dioxide 25 (22-32) mmol/L Anion Gap 9 (2-11) mmol/L BUN 11 (6-24) mg/dL Creatinine 0.64 (0.51-0.95) mg/dL Est GFR ( Amer) 123.9 (>60) Est GFR (Non-Af Amer) 96.3 (>60) BUN/Creatinine Ratio 17.2 (8-20) Glucose 162 H (70-100) mg/dL Calcium 9.2 (8.6-10.3) mg/dL Magnesium 1.9 (1.9-2.7) mg/dL Total Bilirubin 0.40 (0.2-1.0) mg/dL AST 22 (13-39) U/L ALT 18 (7-52) U/L Alkaline Phosphatase 64 (34-104) U/L Total Creatine Kinase 53 (10-223) U/L CK-MB (CK-2) 1.5 (0.6-6.3) ng/mL Troponin I Pending B-Natriuretic Peptide ( - 100) pg/mL Total Protein 7.0 (6.4-8.9) g/dL Albumin 3.8 (3.2-5.2) g/dL Globulin 3.2 (2-4) g/dL Albumin/Globulin Ratio 1.2 (1-3) TSH Pending Thyroxine (T4) Pending 10/29/16 Range/Units 11:41 WBC (3.5-10.8) 10^3/ul RBC (4.0-5.4) 10^6/ul Hgb (12.0-16.0) g/dl Hct (35-47) % MCV (80-97) fL MCH (27-31) pg MCHC (31-36) g/dl RDW (10.5-15) % Plt Count (150-450) 10^3/ul MPV (7.4-10.4) um3 Neut % (Auto) (38-83) % Lymph % (Auto) (25-47) % [place] % (Auto) (1-9) % Eos % (Auto) (0-6) % Baso % (Auto) (0-2) % Absolute Neuts (auto) (1.5-7.7) 10^3/ul Absolute Lymphs (auto) (1.0-4.8) 10^3/ul Absolute Monos (auto) (0-0.8) 10^3/ul Absolute Eos (auto) (0-0.6) 10^3/ul Absolute Basos (auto) (0-0.2) 10^3/ul Absolute Nucleated RBC 10^3/ul Nucleated RBC % APTT (26.0-36.3) seconds Sodium (133-145) mmol/L Potassium (3.5-5.0) mmol/L Chloride (101-111) mmol/L Carbon Dioxide (22-32) mmol/L Anion Gap (2-11) mmol/L BUN (6-24) mg/dL Creatinine (0.51-0.95) mg/dL Est GFR ( Amer) (>60) Est GFR (Non-Af Amer) (>60) BUN/Creatinine Ratio (8-20) Glucose (70-100) mg/dL Calcium (8.6-10.3) mg/dL Magnesium (1.9-2.7) mg/dL Total Bilirubin (0.2-1.0) mg/dL AST (13-39) U/L ALT (7-52) U/L Alkaline Phosphatase (34-104) U/L Total Creatine Kinase (10-223) U/L CK-MB (CK-2) (0.6-6.3) ng/mL Troponin I B-Natriuretic Peptide 34 ( - 100) pg/mL Total Protein (6.4-8.9) g/dL Albumin (3.2-5.2) g/dL Globulin (2-4) g/dL Albumin/Globulin Ratio (1-3) TSH Thyroxine (T4) Result Diagrams: 10/29/16 11:41 10/29/16 11:41 Lab Statement: Any lab studies that have been ordered have been reviewed, and results considered in the medical decision making process. - Radiology CXR Xray Interpretation: No Acute Changes Radiology Interpretation Completed By: Radiologist - EKG 1130 Cardiac Rate: NL - 66 bpm EKG Rhythm: Sinus Rhythm Chest Pain Course/Dx - Course Assessment/Plan: This 56 y/o female presents to ED via ambulance for acute on recurrent 12/30 chest pressure radiating to jaw and Bilateral upper extremities this morning. Pt was sitting in a chair and talking to her brother at the time of onset. 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 Pt reports mild nausea in ambulance and feeling clammy. She was last seen in [facility] for similar chest pain 2 days ago. Pt was admitted and had cardiac cath done, which was benign. Blood test are found within normal limits except for glucose of 162 and troponin 0.05. CXR no acute pathology. Patient already taken ASA and Nitroglycerin. Symptoms with much improvement. Because of her history and comorbidities I discuss my physical exam, findings and test results with Dr. Rizzo from the hospitalist services and she agrees to admit patient to his services. Patient is hemodynamically stable alert and oriented x 3. - Chest Pain Differential Diagnosis/HQI/PQRI: Acute ID, ACS, Angina, CHF, Chest Wall, GI Disease, Lower Respiratory Infection - Diagnoses Provider Diagnoses: Chest pain and increase troponin - Provider Notifications Discussed Care Of Patient With: Dr. Rizzo (hospitalist) at 1303 PM Instructed by Provider To: Admit As Inpatient Discharge - Discharge Plan Condition: Stable Disposition: ADMITTED TO [facility] Referrals: No Primary Care Phys,NOPCP [Primary Care Provider] - The documentation as recorded by the Nigel turpin Soohyun accurately reflects the service I personally performed and the decisions made by me, Fareed Meza MD.
[2016-10-29] MEDS ORDERED: Acetaminophen TAB* 325 MG PO PRN (13:38)
[2016-10-29] MEDS ORDERED: Ondansetron INJ* 2 MG/ML VIAL IV PRN (13:38)
[2016-10-29] MEDS ORDERED: Heparin DRIP 25,000 UNITS(*) 25,000 UNITS/500 ML BAG IVPB SCH ×2 (13:45→16:15)
[2016-10-29] MEDS ORDERED: Diltiazem TAB* 60 MG PO SCH (14:00)
[2016-10-29] MEDS ORDERED: Heparin VIAL(*) 5000 UNITS/ML VIAL (FIVE THOUSAND) IV SCH ×2 (14:00→17:00)
[2016-10-29] MEDS ORDERED: Iohexol 350* (CONTRAST) 500 ML MDV IV ONE (14:08)
[2016-10-29] MEDS ORDERED: NS 0.9% 1000 ML* 1,000 ML IV SCH (14:15)
--- NOTE | 2016-10-29 14:49 | RAD ---
INDICATION: Chest pain. Short of breath. Evaluate for pulmonary embolus. COMPARISON: Chest x-ray October 29, 2016 TECHNIQUE: Axial source images were obtained from the thoracic inlet to the hemidiaphragms following administration of [address] angiographic technique was utilized. Coronal and sagittal reconstructed images were acquired. CHEST FINDINGS: Neck/thyroid: The visualized neck to include the thyroid appear normal. Chest wall: There are no acute abnormalities of the bony thorax or chest wall. There is no supraclavicular, infraclavicular, or axillary lymphadenopathy. Lungs : There are no pulmonary parenchymal masses or infiltrates. The pulmonary interstitium appears normal. There are no endobronchial lesions. Cardiomediastinal structures: There is no CT evidence of acute pulmonary embolic disease. The heart is normal in size. There is no pericardial effusion. There is no evidence of aortic aneurysm or dissection. There is no mediastinal or hilar adenopathy. The esophagus appears normal. Pleura : There are no pleural-based masses or effusions. Other: None. IMPRESSION: NO CT EVIDENCE OF ACUTE PULMONARY EMBOLIC DISEASE. NO ACTIVE DISEASE OF THE CHEST.
[2016-10-29] MEDS: Enoxaparin(*) 100 MG/ML SYR SUBCUT SCH (16:59)
[2016-10-29] MEDS: Ticagrelor* 90 MG TAB PO SCH ×2 (16:59→21:27)
[2016-10-29] MEDS ORDERED: Nitroglycerin 2% OINT* 1 GM PAK ONE (18:22)
[2016-10-29] MEDS ORDERED: Morphine INJ* 2 MG/ML 1 ML SYRINGE IV STA (18:55)
[2016-10-29] MEDS ORDERED: Morphine INJ* 2 MG/ML 1 ML SYRINGE ONE (19:01)
[2016-10-29] MEDS ORDERED: Nitroglycerin TAB 0.4 MG* 0.4 MG TAB ONE (19:35)
[2016-10-29] MEDS ORDERED: Nitroglycerin TAB 0.4 MG* 0.4 MG TAB SL ONE (19:42)
[2016-10-29] MEDS ORDERED: LORazepam TAB(*) 1 MG PO ONE (19:46)
[2016-10-29] MEDS ORDERED: Metoprolol Tartrate TAB* 25 MG PO SCH (21:00)
[2016-10-29] MEDS ORDERED: Atorvastatin* 80 MG TAB PO SCH (21:00)
[2016-10-29] MEDS ORDERED: Heparin VIAL(*) 5000 UNITS/ML VIAL (FIVE THOUSAND) SUBCUT SCH (22:00)
--- NOTE | 2016-10-29 22:56 | HP ---
HISTORY AND PHYSICAL: DATE OF ADMISSION: 10/29/16 PRIMARY CARE PROVIDER: None. ATTENDING PHYSICIAN WHILE IN THE HOSPITAL: Marleny Temple MD * (report dictated by Titi Arreola NP). CHIEF COMPLAINT: Chest pain. CONSULTING SPRAY MIXER: Junior Montes MD HISTORY OF PRESENT ILLNESS: Ms. Mendoza is a 56-year-old female patient coming into the ER today with complaints of chest discomfort. She was just here on the night of the . I admitted her. Actually, she had a cath on the , which showed clean coronaries. The working theory was that she may have had a distal occlusion that resolved from a ruptured plaque, which may have caused her to have an NSTEMI. She represents today because that she had recurrence of symptoms as what she was told to do. She was basically making herself a cup of porridge and she developed chest discomfort in the center of her chest, burning , radiating into the jaw, down both arms exactly the same as her previous episode that lasted about an hour. No associated nausea or shortness of breath and she said she had been taking her medications right along. She immediately came into the hospital. By the time she got here, the pain had gone away. She took 3 nitro and the pain did not go away initially, so that is what made her more concerned. When she came into the ED, she was evaluated. The hospitalist service was asked to evaluate. Her troponin initially was 0.05. PAST MEDICAL HISTORY: Significant for: 1. NSTEMI. 2. Gestational diabetes. 3. Nonobstructive coronary artery disease. She did have mild plaques on the cardiac cath. PAST SURGICAL HISTORY: She has had a heart catheterization. HOME MEDICATIONS: According to the discharge just a day ago include: 1. Nitro 0.4 mg sublingual q.5 minutes x3 p.r.n. chest pain. 2. Lopressor 25 mg p.o. b.i.d. 3. Plavix 75 mg daily. 4. Atorvastatin 80 mg a day. 5. Aspirin 81 mg a day. 6. Tylenol 650 mg every 4 hours as needed. ALLERGIES TO MEDICATIONS: Include no known drug allergies. FAMILY HISTORY: Her mother had a history of coronary artery disease. Father's history was noncontributory. SOCIAL HISTORY: She is a former smoker, about pack a day for 30 years. She quit about 8 years ago. Occasionally drinks alcohol. Surrogate decision maker is her . REVIEW OF SYSTEMS: There is no documented fever. She denied having any significant weight change. There was no double vision. There is no ear discharge. She denied having any rhinorrhea. There is no sore throat or thyroid enlargement. There is chest pain from my HPI. There is no orthopnea. There was no nocturnal dyspnea. There was no abdominal pain. No nausea, no vomiting. No dysuria, no frequency. No loss of consciousness. No pruritus and no skin ulcerations. Review of 14 systems completed, all others negative. PHYSICAL EXAMINATION GENERAL: At this time, Ms. Mendoza is a 56-year-old female patient. She appears to be well nourished, well developed, does not appear to be in any acute distress. VITAL SIGNS: Blood pressure 139/50, pulse 72, respirations 16, O2 sat 98%, temperature 98.4. HEENT: Head is atraumatic and normocephalic. Eyes: EOMs are intact. Sclerae were anicteric and not pale. Throat: Oral mucosa appeared to be moist. No oropharyngeal erythema. NECK: Supple. LUNGS: Clear to auscultation bilaterally. No wheezing, rales, or rhonchi. HEART: Sounds S1 and S2. Regular rate and rhythm. No murmurs, rubs, or gallops. ABDOMEN: Soft, flat, nontender. Bowel sounds present. EXTREMITIES: Pulses were 2+ throughout. She is able to move all 4 extremities with 5/5 strength. NEUROLOGIC: The patient is awake, she is alert, and she is oriented x3. Tongue midline. Combat Systems Operator were equal. She had no gross focal deficits. SKIN: Intact. LABORATORY DATA/DIAGNOSTIC STUDIES: Labs today revealed a WBC of 7.8, RBC of 4.48, hemoglobin 13.4, hematocrit of 41, platelet count of 219. PTT was 32. Sodium 138, potassium 3.9, chloride 104, bicarb 25, BUN 11, creatinine 0.64, glucose 162, lactic 1.6, calcium 9.2, mag 1.9, total bili 0.4, AST 22, ALT 18, alk phos 64, troponin was 0.05 and her albumin was 3.8, TSH was normal. She did have an EKG obtained today, which showed normal sinus rhythm, rate of 66. No ST elevation or T- wave inversions were noted. She had a chest x-ray obtained today, which revealed negative examination. Old medical records were reviewed. ASSESSMENT AND PLAN: Ms. Mendoza is a 56-year-old female patient coming into the ER today with complaints of chest pain who recently had a cardiac catheterization that showed clean coronaries, some mild plaques on the CT. The patient represented today because of recurrence of symptoms and now found to have a troponin of 0.05. We were asked to evaluate for admission. She will be admitted under observation status for: 1. Chest pain. At this point, the troponin may just be coming down from her cardiac catheterization, but I do thing we should still trend these. If they go up, then obviously we need to put her on a heparin drip. She is already on an aspirin, some Plavix, and a statin. She was on a beta-estephanie, but in discussion with Dr. Montes, one of the thoughts that may be causing that she may be having vasospasm, so at this point, her blood pressure and heart rate will not tolerate diltiazem and Lopressor, so I think putting on diltiazem if we think this is spasm is appropriate, we will do 60 mg p.o. t.i.d. and then after 1 to 2 days of this, we can switch her to the sustained release formulation for once a day medication. We will trend her troponins. If they do go up, then obviously I will probably get an echo, place her on the heparin drip and obviously informed Dr. Montes of this and we will continue to follow her closely. One thing that I am going to do today as well is I am going to do a CT of the chest to take pulmonary embolism off the differential, although I think this is unlikely. I think the vasospasm is probably more appropriate diagnosis. 2. History of gestational diabetes, not an active issue. Her last A1c was 5.7. 3. DVT prophylaxis. I will place her on heparin subcu. She is at moderate risk. 4. Fluids, electrolytes, nutrition. She can have a heart healthy diet. 5. Code status. Full code. TIME SPENT: Time spent on the admission was 60 minutes, greater than half the time was spent [id number] with the patient obtaining my history and physical, the other half time is spent going over the plan of care with the patient and implementing plan of care. I did discuss the plan of care with my attending, Dr. Temple. She is in agreement. TITI ARREOLA NP CC: Junior Montes MD* [id number]/[facility] #: [id number] MIREYA
[2016-10-30] MEDS: Morphine INJ* 2 MG/ML 1 ML SYRINGE IV PRN ×3 (00:44→08:35)
[2016-10-30] MEDS: Enoxaparin(*) 100 MG/ML SYR SUBCUT SCH ×2 (04:44→18:07)
[2016-10-30 06:20] LABS: Hematocrit 37 % (35-47); Hemoglobin 12.5 g/dl (12.0-16.0); Mean Corpuscular HGB Conc 33 g/dl (31-36); Mean Corpuscular Hemoglobin 30 pg (27-31); Mean Corpuscular Volume 91 fL (80-97); Mean Platelet Volume 8 um3 (7.4-10.4); Red Blood Count 4.12 10^6/ul (4.0-5.4); Red Cell Distribution Width 13 % (10.5-15); White Blood Count 9.5 10^3/ul (3.5-10.8)
[2016-10-30 06:43] LABS: BUN/Creatinine Ratio 16.4 (8-20); Calcium 8.8 mg/dL (8.6-10.3); EGFR Non-African American 101.8 (>60); Potassium 3.9 mmol/L (3.5-5.0)
[2016-10-30 06:47] LABS: Troponin I 1.48 ng/mL (<0.04)
[2016-10-30] MEDS: Aspirin EC Low Dose* 81 MG TAB.EC PO SCH (07:44)
[2016-10-30] MEDS: Ticagrelor* 90 MG TAB PO SCH ×2 (07:44→20:09)
[2016-10-30] MEDS ORDERED: Clopidogrel TAB* 75 MG PO SCH (09:00)
[2016-10-30 09:12] LABS: Benzodiazepine Urine Screen None Detected (None Detect)
[2016-10-30 09:28] LABS: Urine Bacteria Absent (Absent); Urine Bilirubin Negative (Negative); Urine Glucose Negative (Negative); Urine Nitrite Negative (Negative)
[2016-10-30] MEDS: Diltiazem CD CAP* 240 MG PO SCH (14:31)
[2016-10-30 19:44] LABS: Troponin I 3.97 ng/mL (<0.04)
--- NOTE | 2016-10-30 20:18 | PN ---
Subjective Date of Service: 10/30/16 Interval History: many interactions last night and today about her condition. still-rising troponin values a consequence of a recurrent NSTEMI yesterday with repeat pain early this AM. last troponin 3.97, but her increases are decreasing and no recurrent sx denies TONEY, CP since 5 AM this AM. EKG no active ischemia will repeat CE in AM. patient's family updated at bedside ~[address] Montes aware of case - I discussed it with him face to face and updated him on the troponin values. . Family History: Unchanged from Admission Social History: Unchanged from Admission Past Medical History: Unchanged from Admission Objective Active Medications: . Acetaminophen (Tylenol Tab*) 650 mg PO Q4H PRN PRN Reason: FEVER/PAIN Aspirin (Aspirin Ec Low Dose*) 81 mg PO DAILY [facility] Last Admin: 10/30/16 07:44 Dose: 81 mg Atorvastatin Calcium (Lipitor*) 40 mg PO 2100 [facility] Last Admin: 10/30/16 20:09 Dose: 40 mg Diltiazem HCl (Cardizem Tab*) 60 mg PO Q6HR [facility] Stop: 10/30/16 23:59 Diltiazem HCl (Cardizem Cd Cap*) 240 mg PO DAILY [facility] Last Admin: 10/30/16 14:31 Dose: 240 mg Enoxaparin Sodium (Lovenox(*)) 90 mg SUBCUT Q12H [facility] Last Admin: 10/30/16 18:07 Dose: 90 mg Morphine Sulfate (Morphine Inj (Syringe)*) 2 mg IV Q2H PRN PRN Reason: PAIN Last Admin: 10/30/16 08:35 Dose: 2 mg Ondansetron HCl (Zofran Inj*) 4 mg IV Q6H PRN PRN Reason: NAUSEA Prasugrel (Effient (Nf)) 10 mg PO DAILY [facility] Ticagrelor (Brilinta*) 90 mg PO BID [facility] Stop: 10/30/16 23:59 Last Admin: 10/30/16 20:09 Dose: 90 mg . Vital Signs 10/29/16 10/29/16 10/29/16 20:17 22:17 23:51 Temperature 97.6 F Pulse Rate 60 Respiratory 16 18 16 Rate Blood Pressure 109/70 (mmHg) O2 Sat by Pulse 99 Oximetry 10/30/16 10/30/16 10/30/16 00:00 00:44 01:44 Temperature Pulse Rate Respiratory 17 16 Rate Blood Pressure (mmHg) O2 Sat by Pulse 99 Oximetry Appearance: NAD Eyes: No Scleral Icterus Ears/Nose/Mouth/Throat: NL Teeth, Lips, Gums Neck: NL Appearance and Movements; NL JVP Respiratory: Symmetrical Chest Expansion and Respiratory Effort Cardiovascular: NL Sounds; No Murmurs; No JVD Abdominal: NL Sounds; No Tenderness; No Distention Lymphatic: No Cervical Adenopathy Extremities: No Edema Skin: No Rash or Ulcers Neurological: Alert and Oriented x 3 Lines/Tubes/Other Access: Clean, Dry and Intact Peripheral IV Nutrition: Taking PO's Result Diagrams: 10/30/16 05:30 10/30/16 05:30 Assess/Plan/Problems-Billing . Assessment: 56 yo female with recurrent NSTEMI after cath showed nonocclusive disease . Last pain 5 AM 10/30/16. Current Medications: - Acetaminophen (Tylenol Tab) 650 mg PO Q4H PRN FEVER/PAIN - Aspirin (Aspirin Ec Low Dose) 81 mg PO DAILY - Atorvastatin Calcium (Lipitor) 40 mg PO 2100 - Diltiazem HCl (Cardizem Tab) 60 mg PO Q6HR (stop 10/30) - Diltiazem HCl (Cardizem Cd Cap) 240 mg PO DAILY (start 10/30) - Enoxaparin Sodium (Lovenox) 90 mg SUBCUT Q12H - Morphine Sulfate (Morphine Inj (Syringe)) 2 mg IV Q2H PRN PAIN - Ondansetron HCl (Zofran Inj*) 4 mg IV Q6H PRN NAUSEA - Prasugrel (Effient) 10 mg PO DAILY (start 10/31) - Ticagrelor (Brilinta) 90 mg PO BID (stop 10/30) - Patient Problems (1) NSTEMI (non-ST elevated myocardial infarction) Current Visit: No Status: Acute Priority: High Code(s): I21.4 - NON-ST ELEVATION (NSTEMI) MYOCARDIAL INFARCTION Comment: - BB off - Statin / Lipitor at 40 - prn nitroglycerin - telemetry ongoing, by protocol - cardiology involved - ASA/Effient - Cardizem CD 240 mg PO daily
[2016-10-30] MEDS ORDERED: Atorvastatin* 40 MG TAB PO SCH (21:00)
[2016-10-30] MEDS ORDERED: Diltiazem TAB* 60 MG PO SCH (23:00)
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
[2016-10-31] MEDS: Enoxaparin(*) 100 MG/ML SYR SUBCUT SCH (05:34)
[2016-10-31 08:02] VITALS: BP 106/68
[2016-10-31 08:22] LABS: Troponin I 2.49 ng/mL (<0.04)
[2016-10-31] MEDS: Aspirin EC Low Dose* 81 MG TAB.EC PO SCH (08:22)
[2016-10-31] MEDS: Diltiazem CD CAP* 240 MG PO SCH (08:22)
[2016-10-31] MEDS ORDERED: CMCS: Prasugrel (NF) 10 MG PO SCH (09:00)
--- NOTE | 2016-10-31 09:55 | PN ---
Progress Note - Progress Note Note: Time spent on discharge 40 minutes.
--- NOTE | 2016-11-01 01:16 | DS ---
CC: Dr. Montes DISCHARGE SUMMARY: DATE OF ADMISSION: 10/29/16 DATE OF DISCHARGE: 10/31/16 HOSPITAL COURSE: This 56-year-old woman was admitted with chest pain. She was discharged from the hospital just a few days ago. She was evaluated again for chest pain. She had slightly elevated tr oponin peaking at 0.61. Her LDL was noted to be 145. She had ischemic symptoms. These have primar rupal been doing episodes of emotional upset. She had cardiac catheterization on 10/27/16, by Dr. Erin scott. This showed mild plaquing in the distal circumflex, but no obstructive coronary lesions. It wa s felt that she may have had plaque rupture with distal embolization and/or recanalization. She had normal LV systolic function. She was discharged on dual antiplatelet therapy. She came back in, she had a more marked troponin elevation, but was hemodynamically very stable. He r pain went away rather quickly. Her troponin peaked at 3.97, it was 2.49 on the day of discharge, she felt quite well. She had no pain. Physical examination was unremarkable. Lungs were clear to auscultation and percussion. She had no edema or JVD. I reviewed her discharge medications with her. It is not clear why she was on 2 different doses of atorvastatin, but she has 80 mg size at home, which she has filled and that will be continued. During this admission, the beta estephanie was stopped and she was started on diltiazem thinking that s he may have had coronary spasm. Her clopidogrel was stopped and she was changed to prasugrel. FINAL DIAGNOSES: 1. Acute coronary syndrome. 2. Elevated LDL. DISCHARGE MEDICATIONS: 1. Diltiazem CD 240 mg daily. 2. Prasugrel 10 mg daily. 3. Acetaminophen 650 mg every 4 hours p.r.n. 4. Aspirin 81 mg daily. 5. Atorvastatin 80 mg daily. 6. Nitroglycerin 0.4 mg sublingual every 5 minutes p.r.n. [id number]/[facility] #: [id number]
== END 2016-10-31 11:55 | disposition home or self-care (01) ==
LOC: ED 11:29 → MEDTELE 13:07
PROVIDERS: ADMIT Internal Medicine; ATTEND Internal Medicine
DX: I24.9 Acute ischemic heart disease, unspecified (principal); R74.8 Abnormal levels of other serum enzymes; I25.2 Old myocardial infarction; I25.10 Atherosclerotic heart disease of native coronary artery without angina pectoris; Z79.82 Long term (current) use of aspirin; Z79.899 Other long term (current) drug therapy; Z87.891 Personal history of nicotine dependence
CPT/HCPCS: 36415; 71010; 71275; 80048; 80053; 80307; 81003; 81015; 82550; 82553; 83605; 83735; 83880; 84436; 84443; 84484; 85025; 85730; 93005; 94760; 96372; 96374; 96376; 99284; A9270-GY; G0378; J1650; J2270; Q9967